=== PATIENT | male | born 1990 | race Caucasian/White ===

== ENCOUNTER 2020-01-06 08:48 | Outpatient (REF) | payer BC, SELFPAY ==
--- NOTE | 2020-01-06 08:50 | XR_ITS ---
EXAMINATION: XR SHOULDER, RIGHT CLINICAL INFORMATION: Pain right shoulder. COMPARISON: Radiographs right shoulder 07/31/2016, MRI right shoulder 08/14/2016. TECHNIQUE: Right shoulder is imaged in 3 views. FINDINGS: There is calcific tendinosis in region of distal supraspinatus, increased in size from prior radiographs 2017. There is no fracture or dislocation or destructive process. The glenohumeral joint is unremarkable. The acromioclavicular alignment is normal. IMPRESSION: Calcific tendinosis distal superior rotator cuff increased since prior radiographs 2017.
== END 2020-01-06 08:49 | disposition home or self-care (01) ==
LOC: HO.XRAY 08:48
PROVIDERS: PCP Family Medicine; Referring Provider Family Medicine; Visit Provider Orthopaedic Surgery
DX: M75.41 Impingement syndrome of right shoulder (principal); M75.31 Calcific tendinitis of right shoulder; M25.511 Pain in right shoulder
CPT/HCPCS: 20610; 73030; J1040

== ENCOUNTER → 2020-03-08 09:07 | Outpatient (BNVA) | payer BC, SELFPAY | PROVIDERS: PCP Nurse Practitioner Family; Visit Provider Orthopaedic Surgery | DX: M75.41 Impingement syndrome of right shoulder (principal) | CPT/HCPCS: 20610; J1040 ==

== ENCOUNTER → 2020-04-05 09:23 | Outpatient (BNVA) | payer BC, SELFPAY | PROVIDERS: PCP Nurse Practitioner Family; Visit Provider Internal Medicine Pulmonary Disease ==

== ENCOUNTER 2020-04-25 16:22 | Outpatient (REF) | payer BC, SELFPAY ==
[2020-04-25 16:48] LABS: MANUAL DIFF FLAG NO
[2020-04-25 16:50] LABS: Basophils Absolute Auto 0.1 X10*3/uL (0.0-0.2); Basophils Percent Auto 0.9 % (0-2); Eosinophils Absolute Auto 0.1 X10*3/uL (0.0-0.4); Eosinophils Percent Auto 1.4 % (0-4); Hematocrit 43.7 % (42-52); Imm Gran Abs Auto 0.02 X10*3/uL (0.00-0.03); Imm Gran Pct Auto 0.3 % (0.0-0.4); Lymphocytes Absolute Auto 2.5 X10*3/uL (1.2-4.9); Lymphocytes Percent Auto 38.7 % (20-40); Mean Corpuscular HGB Conc 34.3 g/dl (31.0-36.0); Mean Corpuscular Hemoglobin 31.4 pg (27.0-33.0); Mean Corpuscular Volume 91.4 fL (80-98); Mean Platelet Volume 10.5 fL (9.4-12.4); Monocytes Absolute Auto 0.6 X10*3/uL (0.1-1.2); Monocytes Percent Auto 9.6 % (2-11); Neutrophils Absolute Auto 3.2 X10*3/uL (2.0-8.3); Neutrophils Percent Auto 49.1 % (45-73); Platelet Count 233 X10*3/uL (160-400); Red Blood Count 4.78 X10*6/uL (4.60-5.80); Red Cell Distribution Width 11.9 % (11.0-16.0); White Blood Count 6.6 X10*3/uL (4.8-10.8)
== END 2020-04-25 16:23 | disposition home or self-care (01) ==
LOC: HO.LAB 16:22
PROVIDERS: PCP Nurse Practitioner Family; Visit Provider Internal Medicine Pulmonary Disease
DX: R05 Cough (principal)
CPT/HCPCS: 36415; 82785; 85025; 86003

== ENCOUNTER 2020-04-26 07:54 | Outpatient (REF) | payer BC, SELFPAY ==
--- NOTE | 2020-04-26 17:11 | PFT_ITS ---
INDICATION: Cough. FINDINGS: Spirometry FEV1 of 4.25 L, which is 98% predicted. FVC of 4.76 L, which is 90% predicted. No significant response to bronchodilators noted. The maximum voluntary ventilation is 57% predicted. Lung volumes: Total lung capacity 92% predicted with an expiratory reserve volume of 52% predicted. Diffusion capacity: DLCO 98% predicted. COMPARISONS: None. IMPRESSION: No obstructive nor restrictive ventilatory defects identified. No significant response to bronchodilators noted. The patient does have a moderate decrease in maximal voluntary ventilation of unclear etiology, deconditioning is likely. Lung volumes are within normal limits, and diffusion capacity is also within normal limits. in the differential. Methacholine challenge may be helpful to assess him for hyperactive airways, otherwise clinical correlation warranted. Francisco Guzman MD MR/MODL / [id number] MTDD
== END 2020-04-26 07:55 | disposition home or self-care (01) ==
LOC: HO.RESP 07:54
PROVIDERS: Visit Provider Internal Medicine Pulmonary Disease
DX: R05 Cough (principal)
CPT/HCPCS: 94060; 94727; 94729